=== PATIENT | male | born 1935 | race Caucasian/White ===

== ENCOUNTER 2019-02-18 12:50 | Inpatient (IN) ==
[2019-02-18] MEDS ORDERED: MAGNESIUM SULF RIDER 2 GM in PREMIX 1 EACH IV PRN (14:44)
[2019-02-18] MEDS ORDERED: POTASSIUM CHLORIDE 20 MEQ TABLET PO PRN (14:44)
[2019-02-18] MEDS ORDERED: ACETAMINOPHEN 325 MG TABLET PO PRN (14:44)
[2019-02-18] MEDS ORDERED: BISACODYL 5 MG TABLET PO PRN (14:44)
[2019-02-18] MEDS ORDERED: ONDANSETRON 4 MG/2 ML VIAL IV PRN (14:44)
[2019-02-18] MEDS ORDERED: MAGNESIUM SULF RIDER 4 GM in PREMIX 1 EACH IV PRN (14:44)
[2019-02-18] MEDS ORDERED: ALBUTEROL/IPRATROPIUM 3 ML NEB RESP TX PRN (15:04)
[2019-02-18 17:30] LABS: Basophils # 0.1 10*3/uL (0.0-0.2); Basophils % 0.4 % (0.0-0.8); Eosinophils % 0.2 % (0.00-10.9); Hematocrit 34.5 VOL% (42.0-52.0); Hemoglobin 10.2 GM/DL (14.0-18.0); Immature Granulocytes % 0.6 %; Immature Granulocytes Absolute 0.07 #; Lymphocytes # 0.7 10*3/uL (1.4-4.0); Lymphocytes % 6.4 % (21.2-54.2); Mean Corpuscular HGB Conc 29.6 GM/DL (32-36); Mean Corpuscular Volume 86.9 FL (87-102); Mean Platelet Volume 8.9 FL (9.6-12.0); Monocytes % 6.4 % (1.7-12.7); NRBC # 0.03 10*3/uL; Platelet Count 299 T/CUMM (130-400); Red Blood Count 3.97 MC/CUMM (3.8-5.5); Red Cell Distribution Width 16.3 % (9.3-17.3); White Blood Count 11.6 T/CUMM (4-12)
[2019-02-18 17:50] LABS: ABG Base Excess 5.9 MMOL/L (-2.5-2.5); ABG HCO3 29.6 MMOL/L (20-26); ABG Oxygen Saturation 86.5 % (95-100); ABG PCO2 46.2 MM HG (35-48); ABG PH 7.435 (7.35-7.45); ABG PO2 49.9 MM HG (80-95); ABG TCO2 28.2 MMOL/L (23-27); Allen Test Positive
[2019-02-18] MEDS ORDERED: hydrALAZINE 20 MG/1 ML VIAL IV PRN (17:53)
[2019-02-18 17:57] LABS: Albumin 3.7 G/DL (3.4-5.0); Bilirubin,Total 1.7 MG/DL (0.2-1.0); Calcium 8.3 MG/DL (8.5-10.1); Osmolality,Calculated 295.6 MOS/KG (273-304); Total Protein 6.5 G/DL (6.4-8.3)
[2019-02-18 17:58] LABS: Troponin I < 0.015 NG/ML (0.00-0.045)
[2019-02-18] MEDS: carBAMazepine 200 MG TABLET PO SCH (20:51)
[2019-02-18] MEDS: GABAPENTIN 100 MG CAPSULE PO SCH (20:52)
[2019-02-18] MEDS: carvediloL 6.25 MG TABLET PO SCH (20:52)
[2019-02-18] MEDS ORDERED: ENOXAPARIN 40 MG/0.4 ML SYRINGE SUBCUT SCH (21:00)
[2019-02-18 21:57] LABS: Troponin I 0.015 NG/ML (0.00-0.045)
[2019-02-18] MEDS: TEMAZEPAM 15 MG CAPSULE PO PRN (22:08)
[2019-02-19 05:34] LABS: Calcium 7.8 MG/DL (8.5-10.1); Osmolality,Calculated 291.7 MOS/KG (273-304); Risk Ratio 2.32; VLDL CHOLESTEROL 12.2 MG/DL
[2019-02-19] MEDS: carBAMazepine 200 MG TABLET PO SCH ×2 (08:20→22:05)
[2019-02-19] MEDS: MULTIVITAMIN (CENTRUM) TABLET PO SCH (08:20)
[2019-02-19] MEDS: ASPIRIN EC 81 MG TABLET PO SCH (08:20)
[2019-02-19] MEDS: carvediloL 6.25 MG TABLET PO SCH ×2 (08:21→22:06)
[2019-02-19] MEDS: GABAPENTIN 100 MG CAPSULE PO SCH ×2 (08:21→22:05)
[2019-02-19] MEDS: PANTOPRAZOLE 40 MG TABLET PO SCH (08:32)
[2019-02-19 10:45] LABS: Basophils # 0.1 10*3/uL (0.0-0.2); Basophils % 0.6 % (0.0-0.8); Eosinophils # 0.1 10*3/uL (0.0-0.87); Eosinophils % 0.6 % (0.00-10.9); Hematocrit 28.7 VOL% (42.0-52.0); Hemoglobin 8.4 GM/DL (14.0-18.0); Immature Granulocytes % 0.5 %; Immature Granulocytes Absolute 0.04 #; Lymphocytes # 0.5 10*3/uL (1.4-4.0); Lymphocytes % 5.8 % (21.2-54.2); Mean Corpuscular HGB Conc 29.3 GM/DL (32-36); Mean Corpuscular Volume 85.9 FL (87-102); Mean Platelet Volume 10.3 FL (9.6-12.0); NRBC # 0.02 10*3/uL; Neutrophils % 85.5 % (38.7-73.9); Platelet Count 222 T/CUMM (130-400); Red Blood Count 3.34 MC/CUMM (3.8-5.5); Red Cell Distribution Width 16.4 % (9.3-17.3); White Blood Count 8.3 T/CUMM (4-12)
[2019-02-19 10:51] LABS: INR 1.2; PT Patient Result 12.6 SECS (9.6-12.2)
[2019-02-19 10:52] LABS: % Iron Saturation 3.6 % (18-50)
[2019-02-19] MEDS ORDERED: POTASSIUM CHLORIDE RIDER 10 MEQ in PREMIX 1 EACH IV PRN (11:06)
[2019-02-19] MEDS ORDERED: DIAZEPAM 5 MG TABLET PO ONE (11:06)
[2019-02-19] MEDS ORDERED: diphenhydrAMINE CAP 25 MG CAPSULE PO ONE (11:06)
[2019-02-19 11:14] LABS: Folate > 24.0 NG/ML (5.4-24.0); Vitamin B12 903 PG/ML (211-911)
[2019-02-19] MEDS: amLODIPine 5 MG TABLET PO SCH (11:36)
[2019-02-19] MEDS: ALBUTEROL/IPRATROPIUM 3 ML NEB RESP TX SCH ×2 (13:34→19:20)
[2019-02-19 16:32] LABS: Lymphocytes,Pleural Fluid 72 %; Monocytes,Pleural Fluid 9 %; Neutrophils,Pleural Fluid 19 %; RBC,Pleural Fluid 940 T/CUMM
[2019-02-19] MEDS: TEMAZEPAM 15 MG CAPSULE PO PRN (22:12)
[2019-02-20] MEDS: ALBUTEROL/IPRATROPIUM 3 ML NEB RESP TX SCH ×4 (00:50→19:52)
[2019-02-20] MEDS ORDERED: SODIUM CHLORIDE 0.45% 1,000 ML IV SCH (05:00)
[2019-02-20 05:51] LABS: Basophils # 0.1 10*3/uL (0.0-0.2); Basophils % 0.6 % (0.0-0.8); Eosinophils # 0.1 10*3/uL (0.0-0.87); Eosinophils % 1.6 % (0.00-10.9); Hematocrit 30.1 VOL% (42.0-52.0); Hemoglobin 8.8 GM/DL (14.0-18.0); Immature Granulocytes % 0.5 %; Immature Granulocytes Absolute 0.04 #; Lymphocytes # 0.8 10*3/uL (1.4-4.0); Lymphocytes % 9.9 % (21.2-54.2); Mean Corpuscular HGB Conc 29.2 GM/DL (32-36); Mean Corpuscular Volume 86.7 FL (87-102); Mean Platelet Volume 9.9 FL (9.6-12.0); Monocytes % 9.9 % (1.7-12.7); NRBC # 0.02 10*3/uL; Neutrophils % 77.5 % (38.7-73.9); Platelet Count 228 T/CUMM (130-400); Red Blood Count 3.47 MC/CUMM (3.8-5.5); Red Cell Distribution Width 16.6 % (9.3-17.3); White Blood Count 8.5 T/CUMM (4-12)
[2019-02-20 06:10] LABS: Calcium 7.7 MG/DL (8.5-10.1); Osmolality,Calculated 285.1 MOS/KG (273-304)
[2019-02-20] MEDS ORDERED: DIAZEPAM 5 MG TABLET PO ONE (07:00)
[2019-02-20] MEDS ORDERED: diphenhydrAMINE CAP 25 MG CAPSULE PO ONE (07:00)
[2019-02-20] MEDS ORDERED: HEPARIN/NACL 0.9% 2 UNITS/ML 1,000 ML IV ONE (08:28)
[2019-02-20] MEDS ORDERED: LIDOCAINE 1% 20 ML VIAL ONE (08:28)
[2019-02-20] MEDS ORDERED: ASPIRIN CHEW 81 MG TABLET PO ONE (08:32)
[2019-02-20] MEDS ORDERED: ONDANSETRON 4 MG/2 ML VIAL ONE (08:54)
[2019-02-20] MEDS ORDERED: fentaNYL 100 MCG/2 ML VIAL ONE (09:14)
[2019-02-20] MEDS ORDERED: VANCOMYCIN INJ 500 MG in SODIUM CHLORIDE 0.9% 100 ML IV ONE (09:18)
[2019-02-20] MEDS ORDERED: VANCOMYCIN 500 MG VIAL ONE (09:21)
[2019-02-20] MEDS ORDERED: ALBUTEROL SULFATE INH PRN (10:16)
[2019-02-20] MEDS: ASPIRIN EC 81 MG TABLET PO SCH (12:55)
[2019-02-20] MEDS: MULTIVITAMIN (CENTRUM) TABLET PO SCH (13:34)
[2019-02-20] MEDS: GABAPENTIN 100 MG CAPSULE PO SCH ×2 (13:34→21:18)
[2019-02-20] MEDS: FERROUS SULFATE 325 MG TABLET PO SCH ×2 (13:42→18:19)
[2019-02-20] MEDS: amLODIPine 5 MG TABLET PO SCH (13:43)
[2019-02-20] MEDS: carvediloL 6.25 MG TABLET PO SCH ×2 (13:43→21:16)
[2019-02-20] MEDS: PANTOPRAZOLE 40 MG TABLET PO SCH (13:43)
[2019-02-20] MEDS: carBAMazepine 200 MG TABLET PO SCH (17:25)
[2019-02-20] MEDS ORDERED: CARBAMAZEPINE 400 MG PO SCH (21:00)
[2019-02-20] MEDS: TEMAZEPAM 15 MG CAPSULE PO SCH (21:16)
[2019-02-21] MEDS: ALBUTEROL/IPRATROPIUM 3 ML NEB RESP TX SCH ×4 (01:07→20:10)
[2019-02-21 05:01] LABS: Basophils % 0.4 % (0.0-0.8); Eosinophils # 0.2 10*3/uL (0.0-0.87); Eosinophils % 2.2 % (0.00-10.9); Hematocrit 28.1 VOL% (42.0-52.0); Hemoglobin 8.1 GM/DL (14.0-18.0); Immature Granulocytes % 0.3 %; Immature Granulocytes Absolute 0.03 #; Lymphocytes # 0.7 10*3/uL (1.4-4.0); Lymphocytes % 6.7 % (21.2-54.2); Mean Corpuscular HGB Conc 28.8 GM/DL (32-36); Mean Corpuscular Volume 88.1 FL (87-102); Monocytes % 9.2 % (1.7-12.7); NRBC # 0.03 10*3/uL; Neutrophils % 81.2 % (38.7-73.9); Platelet Count 214 T/CUMM (130-400); Red Blood Count 3.19 MC/CUMM (3.8-5.5); Red Cell Distribution Width 16.6 % (9.3-17.3); White Blood Count 9.7 T/CUMM (4-12)
[2019-02-21 05:28] LABS: Hypochromasia 1+; Ovalocytes 1+; Platelet Estimate Normal; Schistocytes Few; Target Cells Few
[2019-02-21 05:34] LABS: Calcium 7.5 MG/DL (8.5-10.1); Osmolality,Calculated 284.4 MOS/KG (273-304)
[2019-02-21] MEDS: amLODIPine 5 MG TABLET PO SCH (09:12)
[2019-02-21] MEDS: PANTOPRAZOLE 40 MG TABLET PO SCH (09:13)
[2019-02-21] MEDS: FERROUS SULFATE 325 MG TABLET PO SCH ×4 (09:13→17:21)
[2019-02-21] MEDS: IRON (CARBONYL)/VIT C/B12/FA TABLET PO SCH (09:13)
[2019-02-21] MEDS: ASPIRIN EC 81 MG TABLET PO SCH (09:13)
[2019-02-21] MEDS: carvediloL 6.25 MG TABLET PO SCH ×2 (09:14→20:47)
[2019-02-21] MEDS: MULTIVITAMIN (CENTRUM) TABLET PO SCH (09:14)
[2019-02-21] MEDS: GABAPENTIN 100 MG CAPSULE PO SCH ×2 (10:28→20:47)
[2019-02-21] MEDS: TRELEGY INH SCH (11:54)
[2019-02-21] MEDS: TEMAZEPAM 15 MG CAPSULE PO SCH (20:46)
[2019-02-22] MEDS: ALBUTEROL/IPRATROPIUM 3 ML NEB RESP TX SCH ×4 (01:10→19:45)
[2019-02-22 05:29] LABS: ABG Base Excess 0.9 MMOL/L (-2.5-2.5); ABG HCO3 25.2 MMOL/L (20-26); ABG Oxygen Saturation 97.7 % (95-100); ABG PH 7.223 (7.35-7.45); ABG TCO2 28.4 MMOL/L (23-27); Allen Test Positive; Pt O2 Delivery Device Simple Mask
[2019-02-22 05:30] LABS: ABG PCO2 73.2 MM HG (35-48)
[2019-02-22] MEDS: PANTOPRAZOLE 40 MG TABLET PO SCH (08:10)
[2019-02-22] MEDS: ASPIRIN EC 81 MG TABLET PO SCH (08:10)
[2019-02-22] MEDS: IRON (CARBONYL)/VIT C/B12/FA TABLET PO SCH (08:10)
[2019-02-22] MEDS: FERROUS SULFATE 325 MG TABLET PO SCH ×3 (08:11→16:09)
[2019-02-22] MEDS: MULTIVITAMIN (CENTRUM) TABLET PO SCH (08:11)
[2019-02-22] MEDS: carvediloL 6.25 MG TABLET PO SCH ×2 (08:11→21:44)
[2019-02-22] MEDS: GABAPENTIN 100 MG CAPSULE PO SCH ×2 (08:11→21:44)
[2019-02-22] MEDS: TRELEGY INH SCH (08:12)
[2019-02-22] MEDS: amLODIPine 5 MG TABLET PO SCH (08:12)
[2019-02-22 08:25] LABS: Allen Test Positive; Pt O2 Delivery Device BIPAP
[2019-02-22 08:26] LABS: ABG Base Excess 3.1 MMOL/L (-2.5-2.5); ABG HCO3 27.2 MMOL/L (20-26); ABG Oxygen Saturation 97.7 % (95-100); ABG PCO2 58.4 MM HG (35-48); ABG PH 7.321 (7.35-7.45); ABG PO2 89.2 MM HG (80-95); ABG TCO2 28.2 MMOL/L (23-27)
[2019-02-22 09:51] LABS: Basophils % 0.1 % (0.0-0.8); Eosinophils % 0.1 % (0.00-10.9); Hematocrit 26.9 VOL% (42.0-52.0); Hemoglobin 7.9 GM/DL (14.0-18.0); Immature Granulocytes % 0.5 %; Immature Granulocytes Absolute 0.08 #; Lymphocytes # 0.3 10*3/uL (1.4-4.0); Lymphocytes % 1.8 % (21.2-54.2); Mean Corpuscular HGB Conc 29.4 GM/DL (32-36); Mean Corpuscular Volume 87.1 FL (87-102); Mean Platelet Volume 10.4 FL (9.6-12.0); Monocytes % 6.3 % (1.7-12.7); Neutrophils % 91.2 % (38.7-73.9); Platelet Count 186 T/CUMM (130-400); Red Blood Count 3.09 MC/CUMM (3.8-5.5); Red Cell Distribution Width 17.2 % (9.3-17.3); White Blood Count 15.8 T/CUMM (4-12)
[2019-02-22 10:11] LABS: Hypochromasia 1+; Ovalocytes Slight; Platelet Estimate Adequate; Segmented Neutrophils 97 % (50-85); Total Cells Counted 100
[2019-02-22] MEDS: methylPREDNISolone SOD SUC 40 MG/1 ML VIAL IV SCH ×2 (10:17→16:10)
[2019-02-22 10:21] LABS: Calcium 7.9 MG/DL (8.5-10.1); Osmolality,Calculated 283.4 MOS/KG (273-304)
[2019-02-22] MEDS ORDERED: DEXTROSE 10% 250 ML BAG IV PRN (10:47)
[2019-02-22] MEDS ORDERED: GLUCAGON 1 MG VIAL IM PRN (10:47)
[2019-02-22] MEDS: HYDROCORTISONE 100 MG VIAL IV SCH ×2 (11:30→19:29)
[2019-02-22] MEDS: INSULIN LISPRO 100 UNIT/ML SUBCUT SCH ×3 (11:45→19:29)
[2019-02-22 19:00] VITALS: BP 138/44
[2019-02-22] MEDS: TEMAZEPAM 15 MG CAPSULE PO SCH (21:44)
[2019-02-23] MEDS: INSULIN LISPRO 100 UNIT/ML SUBCUT SCH ×6 (00:10→21:11)
[2019-02-23] MEDS: ALBUTEROL/IPRATROPIUM 3 ML NEB RESP TX SCH ×4 (00:13→19:40)
[2019-02-23] MEDS: methylPREDNISolone SOD SUC 40 MG/1 ML VIAL IV SCH ×3 (01:03→18:37)
[2019-02-23] MEDS: HYDROCORTISONE 100 MG VIAL IV SCH ×2 (02:53→12:17)
[2019-02-23 04:56] LABS: Basophils % 0.1 % (0.0-0.8); Hematocrit 30.1 VOL% (42.0-52.0); Hemoglobin 8.8 GM/DL (14.0-18.0); Immature Granulocytes % 0.7 %; Immature Granulocytes Absolute 0.14 #; Lymphocytes # 0.2 10*3/uL (1.4-4.0); Lymphocytes % 1.2 % (21.2-54.2); Mean Corpuscular HGB Conc 29.2 GM/DL (32-36); Mean Corpuscular Volume 87.2 FL (87-102); Mean Platelet Volume 11.2 FL (9.6-12.0); NRBC # 0.02 10*3/uL; Platelet Count 217 T/CUMM (130-400); Red Blood Count 3.45 MC/CUMM (3.8-5.5); Red Cell Distribution Width 17.2 % (9.3-17.3)
[2019-02-23 05:00] LABS: Calcium 8.4 MG/DL (8.5-10.1); Osmolality,Calculated 288.5 MOS/KG (273-304)
[2019-02-23 05:15] LABS: Band Neutrophils 1 % (0-10); Lymphocytes 3 % (20-55); Platelet Estimate Normal; Segmented Neutrophils 95 % (50-85); Total Cells Counted 100
[2019-02-23 09:05] LABS: Allen Test Positive; Pt O2 Delivery Device BIPAP
[2019-02-23 09:07] LABS: ABG Base Excess 2.4 MMOL/L (-2.5-2.5); ABG HCO3 26.6 MMOL/L (20-26); ABG Oxygen Saturation 97.2 % (95-100); ABG PCO2 60.7 MM HG (35-48); ABG PH 7.301 (7.35-7.45); ABG PO2 87.7 MM HG (80-95)
[2019-02-23] MEDS: carvediloL 6.25 MG TABLET PO SCH ×2 (11:50→21:20)
[2019-02-23] MEDS: FERROUS SULFATE 325 MG TABLET PO SCH ×3 (11:50→18:37)
[2019-02-23] MEDS: GABAPENTIN 100 MG CAPSULE PO SCH ×2 (11:51→21:19)
[2019-02-23] MEDS: ASPIRIN EC 81 MG TABLET PO SCH (12:14)
[2019-02-23] MEDS: amLODIPine 5 MG TABLET PO SCH (12:14)
[2019-02-23] MEDS: TRELEGY INH SCH (12:15)
[2019-02-23] MEDS: PANTOPRAZOLE 40 MG TABLET PO SCH (12:15)
[2019-02-23] MEDS: MULTIVITAMIN (CENTRUM) TABLET PO SCH (12:17)
[2019-02-23] MEDS: IRON (CARBONYL)/VIT C/B12/FA TABLET PO SCH (12:17)
[2019-02-23] MEDS: CLINDAMYCIN INJ 900 MG in PREMIX 1 EACH IV ONE (12:18)
[2019-02-23 12:55] LABS: ABG Base Excess 2.4 MMOL/L (-2.5-2.5); ABG HCO3 26.5 MMOL/L (20-26); ABG Oxygen Saturation 93.4 % (95-100); ABG PCO2 60.4 MM HG (35-48); ABG PH 7.302 (7.35-7.45); ABG PO2 67.3 MM HG (80-95); Allen Test Positive; Pt O2 Delivery Device Other
[2019-02-23] MEDS: TEMAZEPAM 15 MG CAPSULE PO SCH (21:20)
[2019-02-23] MEDS ORDERED: flumazeniL 0.5 MG/5 ML VIAL IV ONE ×2 (22:32→22:41)
[2019-02-24] MEDS: ALBUTEROL/IPRATROPIUM 3 ML NEB RESP TX SCH (00:25)
[2019-02-24] MEDS: INSULIN LISPRO 100 UNIT/ML SUBCUT SCH ×2 (00:37→05:23)
[2019-02-24] MEDS ORDERED: flumazeniL 0.5 MG/5 ML VIAL IV ONE ×2 (01:19→03:34)
[2019-02-24] MEDS: methylPREDNISolone SOD SUC 40 MG/1 ML VIAL IV SCH (01:51)
[2019-02-24 02:24] LABS: ABG Base Excess -3.5 MMOL/L (-2.5-2.5); ABG HCO3 21.4 MMOL/L (20-26); ABG Oxygen Saturation 93.8 % (95-100); ABG PO2 90.3 MM HG (80-95); ABG TCO2 30.2 MMOL/L (23-27); Allen Test Positive; Pt O2 Delivery Device BIPAP
[2019-02-24 02:28] LABS: ABG PH 7.026 (7.35-7.45)
[2019-02-24] MEDS ORDERED: CALCIUM GLUCONATE 1,000 MG in SODIUM CHLORIDE 0.9% 100 ML IV ONE (02:30)
[2019-02-24 02:32] LABS: INR 1.1; PT Patient Result 11.8 SECS (9.6-12.2); Partial Thromboplastin Time 27.4 SECS (20.8-36.0)
[2019-02-24 02:39] LABS: Calcium 8.1 MG/DL (8.5-10.1); Osmolality,Calculated 292.7 MOS/KG (273-304)
[2019-02-24 02:43] LABS: Basophils % 0.1 % (0.0-0.8); Hemoglobin 9.1 GM/DL (14.0-18.0); Immature Granulocytes % 1.1 %; Immature Granulocytes Absolute 0.25 #; Lymphocytes # 0.3 10*3/uL (1.4-4.0); Lymphocytes % 1.3 % (21.2-54.2); Mean Corpuscular HGB Conc 27.8 GM/DL (32-36); Mean Corpuscular Volume 89.8 FL (87-102); Mean Platelet Volume 10.9 FL (9.6-12.0); Monocytes % 3.9 % (1.7-12.7); NRBC # 0.02 10*3/uL; Neutrophils % 93.6 % (38.7-73.9); Platelet Count 281 T/CUMM (130-400); Red Blood Count 3.64 MC/CUMM (3.8-5.5); Red Cell Distribution Width 17.3 % (9.3-17.3); White Blood Count 21.9 T/CUMM (4-12)
[2019-02-24 02:45] LABS: Hematocrit 32.7 VOL% (42.0-52.0)
[2019-02-24] MEDS ORDERED: INSULIN REGULAR 100 UNIT/ML IV ONE (02:47)
[2019-02-24] MEDS ORDERED: INSULIN REGULAR 100 UNIT/ML ONE (02:50)
[2019-02-24] MEDS ORDERED: DEXTROSE 50% 25 GM/50 ML VIAL IV ONE (02:53)
[2019-02-24 03:22] LABS: Hypochromasia Slight; Nucleated Red Blood Cells 1 (0-5); Platelet Estimate Normal; Polychromasia Few; Segmented Neutrophils 96 % (50-85); Total Cells Counted 100
[2019-02-24] MEDS ORDERED: SODIUM BICARBONATE 50 MEQ/50 ML VIAL IV ONE ×3 (03:38→03:51)
[2019-02-24] MEDS ORDERED: MORPHINE 4 MG/1 ML VIAL ONE (05:16)
[2019-02-24] MEDS: CLINDAMYCIN INJ 900 MG in PREMIX 1 EACH IV ONE (05:23)
[2019-02-24] MEDS: MORPHINE 4 MG/1 ML VIAL IV PRN ×2 (05:23→05:58)
[2019-02-24] MEDS ORDERED: LIDOCAINE 2% VISCOUS 100 ML BOTTLE SWISH/SPIT ONE (09:00)
[2019-02-24] MEDS ORDERED: LIDOCAINE 2% 20 ML VIAL RESP TX ONE (09:00)
[2019-02-24] MEDS ORDERED: LIDOCAINE 1% 20 ML VIAL MISC INJ ONE (09:00)
== END 2019-02-24 06:11 | disposition expired | DRG 186 ==
LOC: INTOOBSV 15:57 → N.2E 15:57 → N.CC 02-22 04:57
PROVIDERS: ADMIT Internal Medicine Cardiovascular Disease; ATTEND Internal Medicine Cardiovascular Disease
PROC: IRTHORA (2019-02-19 15:05)